=== PATIENT | male | born 1940 | race Caucasian/White ===

== ENCOUNTER 2021-04-10 12:27 | Emergency (ER) | payer MEDICARE ==
[~2021-04-10] VITALS: Ht 177.8 cm; Wt 88.5 kg
--- NOTE | 2021-04-10 12:30 | NUR ---
Placed in room 06 . Placed on swage tender, blood pressure machine and pulse oximeter. To gown for exam. Side rails up.
[2021-04-10 12:31] VITALS: BP_SYST 127
--- NOTE | 2021-04-10 12:35 | NUR ---
MD PARKS AT BEDSIDE ASSESSING PT.
--- NOTE | 2021-04-10 12:42 | NUR ---
RN ASSESSES PT. PT IS ALERT ORIENTED. PT STATES HE TAKES ATENOLOL AND A STATIN. PT DOES NOT CHECK B/P BEFORE TAKING BP MEDS, HE STATED. PT HR IS 56.
[2021-04-10 12:57] LABS: BASOPHILS # (AUTO) 0.1 K/uL (0.0-0.2); BASOPHILS % (AUTO) 0.8 % (0.0-2.0); EOSINOPHILS # (AUTO) 0.2 K/uL (0.0-0.4); EOSINOPHILS % (AUTO) 2.1 % (0.0-4.0); HEMATOCRIT 42.5 % (36-54); HEMOGLOBIN 14.4 g/dL (14.0-18.0); LYMPHOCYTES # (AUTO) 1.6 K/uL (1.0-5.5); LYMPHOCYTES % (AUTO) 20.9 % (20.5-51.5); MEAN CORPUSCULAR HEMOGLOBIN 31 pg (27-31); MEAN CORPUSCULAR HGB CONC 34 % (32-36); MEAN CORPUSCULAR VOLUME 93 fL (79.0-98.0); MONOCYTES # (AUTO) 0.5 K/uL (0.0-1.0); NEUTROPHILS # (AUTO) 5.4 K/uL (1.8-7.7); NEUTROPHILS % (AUTO) 70.2 % (40.0-70.0); PLATELET COUNT (AUTO) 167 K/uL (130-430); RED CELL DISTRIBUTION WIDTH 12.7 % (9.0-15.0); WHITE BLOOD COUNT (AUTO) 7.7 K/uL (4.8-10.8)
[2021-04-10 13:01] LABS: ANION GAP 10 (5-15); CALCIUM 8.6 mg/dL (8.4-11.0); CHLORIDE 106 mmol/L (98-107); CREATININE 1.94 mg/dL (0.55-1.30); GLUCOSE 147 mg/dL (70-99); POTASSIUM 3.4 mmol/L (3.5-5.1); SODIUM SERUM 145 mmol/L (136-145); UREA NITROGEN, BLOOD 24 mg/dL (8-21)
[2021-04-10 13:05] LABS: INR 1.1 (0.80-1.20); PROTHROMBIN TIME 11.1 SECS (9.5-12.5)
[2021-04-10 13:08] LABS: ALANINE AMINOTRANSFERASE 22 U/L (12-78); ALBUMIN 3.2 g/dL (3.4-4.8); ASPARTATE AMINOTRANSFERASE 22 U/L (10-37); TOTAL BILIRUBIN 0.8 mg/dL (0.0-1.0)
--- NOTE | 2021-04-10 14:08 | NUR ---
pt had been taken to ct and is now back. resting well. stable
--- NOTE | 2021-04-10 14:20 | NUR ---
Patient given written and verbal discharge instructions and verbalizes understanding. ER MD discussed with patient the results and treatment provided. Patient in stable condition. ID arm band removed. . Patient educated on pain management and to follow up with PMD. Pain Scale 0 / 10. Opportunity for questions provided and answered. Medication side effect fact sheet provided.
--- NOTE | 2021-04-10 14:20 | NUR ---
All test came back normal. pt is being prepared for dc home. He is calling a family member now.
[2021-04-10 14:22] VITALS: BP_SYST 148
== END 2021-04-10 14:20 | disposition home or self-care (01) ==
LOC: SED 12:27
DX: R55 Syncope and collapse (principal)
CPT/HCPCS: 36415; 70450-TC; 71045; 76376; 80053; 82550; 83605; 84484; 85025; 85610-TC; 85730-TC; 93005; 99285